=== PATIENT | male | born 1985 | race African-American/Black ===

== ENCOUNTER 2017-04-27 19:38 | Emergency (ER) | payer SELFPAY ==
[~2017-04-27] VITALS: Ht 177.8 cm; Wt 113.0 kg
[2017-04-27 19:50] VITALS: BP 136/83
== END 2017-04-27 21:01 | disposition left against medical advice (07) ==
LOC: ER 21:01
DX: Z53.21 Procedure and treatment not carried out due to patient leaving prior to being seen by health care provider (principal)